=== PATIENT | female | born 1945 ===

== ENCOUNTER 2020-03-04 12:15 | Inpatient (IN) | payer SELFPAY ==
[2020-03-04] VITALS (7 sets, daily range): BP systolic 106–132; BP diastolic 63–78
[~2020-03-04] VITALS: Ht 145 cm; Wt 67.6 kg
--- NOTE | 2020-03-04 12:45 | ED Cough/URI ---
General Chief Complaint: Respiratory Problems Stated Complaint: COUGH/SOB Source: patient Exam Limitations: no limitations History of Present Illness Date Seen by Provider: Mar 04, 2020 Time Seen by Provider: 12:42 Initial Comments to ER by private vehicle from [facility] with reports of hypoxia. She presented out there with reports of shortness of breath and loss of taste over the past week. The loss of taste began 7 days ago the shortness of breath began 5 days ago. She has hypertension for which she takes amlodipine and losartan. She takes no other medications and has no other known medical diagnoses. She does not smoke. Oxygen saturation was found to be 88-89% on room air so she was referred to the emergency room. Her grandson lives with her, he tested positive for COVID within the past 2 weeks. Timing/Duration: constant Severity/Quality: no cough Associated Symptoms: shortness of breath Allergies and Home Medications Allergies Coded Allergies: No Known Drug Allergies (Unverified , 03/04/20) Home Medications Amlodipine Besylate 5 Mg Tablet, 5 MG PO DAILY, (Reported) Patient Home Medication List Home Medication List Reviewed: Yes Review of Systems Review of Systems Constitutional: see HPI; No other (no known fever) EENTM: see HPI, other (loss of taste) Respiratory: see HPI; No cough; short of breath Cardiovascular: no symptoms reported Genitourinary: no symptoms reported Musculoskeletal: no symptoms reported Skin: no symptoms reported Psychiatric/Neurological: No Symptoms Reported Hematologic/Lymphatic: No Symptoms Reported Immunological/Allergic: no symptoms reported Past Belwlpk-Yqkeku-Udaynb Hx Patient Social History Alcohol Use: Rarely Uses Recreational Drug Use: No Smoking Status: Never a Smoker Recent Hopitalizations: No Seasonal Allergies Seasonal Allergies: No Past Medical History Surgeries: Yes Section, Eye Surgery Respiratory: No Cardiac: Yes Hypertension Neurological: No Genitourinary: No Gastrointestinal: No Musculoskeletal: No Endocrine: No HEENT: Yes Cataract Cancer: No Psychosocial: No Integumentary: No Physical Exam Vital Signs - First Documented 03/04/20 12:39 Temp 37.3 Pulse 97 Resp 24 B/P (MAP) 127/67 (87) Pulse Ox 96 O2 Delivery Nasal Cannula O2 Flow Rate 2.00 Capillary Refill : Height: '" Weight: lbs. oz. kg; BMI Method: General Appearance: WD/WN, no apparent distress, other (no distress, respiratory rate is about 25/m, speaks in full sentences. Oxygen saturation 89% on room air on arrival, increased to 97% with supplemental oxygen at only 2 L. Right lung sounds are managed and crackly.) HEENT: PERRL/EOMI, normal ENT inspection Neck: non-tender, full range of motion Respiratory: no respiratory distress, no accessory muscle use Cardiovascular: regular rate, rhythm, no murmur Gastrointestinal: normal bowel sounds, non tender, soft Extremities: normal range of motion, non-tender Neurologic/Psychiatric: alert, normal mood/affect, oriented x 3 Skin: normal color, warm/dry Focused Exam Lactate Level 03/04/20 12:51: Lactic Acid Level 1.34 Lactic Acid Level Laboratory Tests Test 03/04/20 12:51 Lactic Acid Level 1.34 MMOL/L (0.50-2.00) Progress/Results/Core Measures Suspected Sepsis SIRS Temperature: Pulse: Respiratory Rate: Laboratory Tests 03/04/20 12:51: White Blood Count 13.7H Blood Pressure / Mean: 03/04/20 12:51: Lactic Acid Level 1.34 Laboratory Tests 03/04/20 12:51: Creatinine 0.71, INR Comment 1.1, Platelet Count 423H, Total Bilirubin 0.4 Results/Orders Lab Results Laboratory Tests Test 03/04/20 12:51 Range/Units White Blood Count 13.7 H 4.3-11.0 10^3/uL Red Blood Count 3.93 L 4.35-5.85 10^6/uL Hemoglobin 11.8 11.5-16.0 G/DL Hematocrit 35 35-52 % Mean Corpuscular Volume 89 80-99 FL Mean Corpuscular Hemoglobin 30 25-34 PG Mean Corpuscular Hemoglobin Concent 34 32-36 G/DL Red Cell Distribution Width 12.7 10.0-14.5 % Platelet Count 423 H 130-400 10^3/uL Mean Platelet Volume 8.7 7.4-10.4 FL Neutrophils (%) (Auto) 90 H 42-75 % Lymphocytes (%) (Auto) 6 L 12-44 % Monocytes (%) (Auto) 4 0-12 % Eosinophils (%) (Auto) 0 0-10 % Basophils (%) (Auto) 0 0-10 % Neutrophils # (Auto) 12.3 H 1.8-7.8 X 10^3 Lymphocytes # (Auto) 0.8 L 1.0-4.0 X 10^3 Monocytes # (Auto) 0.6 0.0-1.0 X 10^3 Eosinophils # (Auto) 0.0 0.0-0.3 10^3/uL Basophils # (Auto) 0.0 0.0-0.1 10^3/uL Neutrophils % (Manual) 93 % Lymphocytes % (Manual) 5 % Monocytes % (Manual) 2 % Blood Morphology Comment NORMAL Prothrombin Time 14.3 12.2-14.7 SEC INR Comment 1.1 0.8-1.4 Activated Partial Thromboplast Time 30 24-35 SEC D-Dimer 2.15 H 0.00-0.49 UG/ML Sodium Level 136 135-145 MMOL/L Potassium Level 4.0 3.6-5.0 MMOL/L Chloride Level 106 98-107 MMOL/L Carbon Dioxide Level 18 L 21-32 MMOL/L Anion Gap 12 5-14 MMOL/L Blood Urea Nitrogen 10 7-18 MG/DL Creatinine 0.71 0.60-1.30 MG/DL Estimat Glomerular Filtration Rate > 60 BUN/Creatinine Ratio 14 Glucose Level 121 H 70-105 MG/DL Lactic Acid Level 1.34 0.50-2.00 MMOL/L Calcium Level 8.4 L 8.5-10.1 MG/DL Corrected Calcium 9.0 8.5-10.1 MG/DL Total Bilirubin 0.4 0.1-1.0 MG/DL Aspartate Amino Transf (AST/SGOT) 51 H 5-34 U/L Alanine Aminotransferase (ALT/SGPT) 45 0-55 U/L Alkaline Phosphatase 95 40-136 U/L Lactate Dehydrogenase 455 H 125-220 U/L Troponin I < 0.028 <0.028 NG/ML C-Reactive Protein High Sensitivity 26.44 H 0.00-0.50 MG/DL Total Protein 7.3 6.4-8.2 GM/DL Albumin 3.2 3.2-4.5 GM/DL Procalcitonin 0.11 H <0.10 NG/ML My Orders Orders - MICHELLE UGARTE APRN Vital Signs: Every 4 Hours (Or (03/04/20 12:21) Monitor-Rhythm Ecg Trace Only (03/04/20 12:21) Cbc With Automated Diff (03/04/20 12:21) Comprehensive Metabolic Panel (03/04/20 12:21) Ferritin (03/04/20 12:21) LDH (03/04/20 12:21) Hs C Reactive Protein (03/04/20 12:21) Troponin I (03/04/20 12:21) Lactic Acid Analyzer (03/04/20 12:21) Protime With Inr (03/04/20 12:21) Partial Thromboplastin Time (03/04/20 12:21) Ekg Tracing (03/04/20 12:21) Chest 1 View, Ap/Pa Only (03/04/20 12:21) Fibrin Degradation Products (03/04/20 12:21) Blood Culture (03/04/20 12:45) Procalcitonin (Pct) (03/04/20 12:45) Coronavirus Sars-Cov-2 So 2018 (03/04/20 12:45) Manual Differential (03/04/20 12:51) Ct Angio Chest W (03/04/20 13:16) Iohexol Injection (Omnipaque 350 Mg/Ml 1 (03/04/20 13:30) Received Contrast (Hold Metformin- Contr (03/04/20 13:30) Ns (Ivpb) (Sodium Chloride 0.9% Ivpb Bag (03/04/20 13:30) Remdesivir Inj (Non-Formulary) (Remdesiv (03/04/20 14:45) Vital Signs/I&O 03/04/20 12:39 Temp 37.3 Pulse 97 Resp 24 B/P (MAP) 127/67 (87) Pulse Ox 96 O2 Delivery Nasal Cannula O2 Flow Rate 2.00 Capillary Refill : Diagnostic Imaging Diagonstic Imaging: CT Comments NAME: VANDANA GUEVARA [facility] REC#: [id number] PT STATUS: REG ER : 1945 PHYSICIAN: MICHELEL UGARTE APRN ADMIT DATE: 03/04/20/ER Draft Date of Exam:03/04/20 CHEST 1 VIEW, AP/PA ONLY INDICATION: Dyspnea and hypoxia. COMPARISON: None. DISCUSSION: Single portable upright view of the chest was obtained. Normal heart size. Patchy infiltrates are noted throughout both lungs particularly in the lung bases, likely pneumonia. No pleural fluid or pneumothorax. No osseous abnormality. IMPRESSION: 1. Bilateral consolidation, likely pneumonia. Dictated on workstation # [id number] Dict: 03/04/20 1302 Trans: 03/04/20 1320 [id number] Interpreted by: TATIANA DARDEN MD Electronically signed by: Departure Communication (Admissions) Family Conversation I spoke with Dr. Morataya, we'll admit and use Decadron 6 mg daily and Remdesivir per protocol NAME: VANDANA GUEVARA [facility] REC#: [id number] PT STATUS: REG ER : 1945 PHYSICIAN: MICHELLE UGARTE APRN ADMIT DATE: 03/04/20/ER Signed Date of Exam:03/04/20 CT ANGIO CHEST W PROCEDURE: CT angiography of the chest with contrast. TECHNIQUE: Multiple contiguous axial images were obtained through the chest after uneventful bolus administration of intravenous contrast. 3D reconstructed CTA MIP acquisitions were also performed. Auto Exposure Controls were utilized during the CT exam to meet ALARA standards for radiation dose reduction. DATE: March 04, 2020. COMPARISON: Chest radiograph March 04, 2020. INDICATION: 74-year-old female, respiratory difficulty. Shortness of breath. FINDINGS: There are multifocal patchy bilateral areas of alveolar consolidation. There is no identified pulmonary nodule. There is no lung mass. There is no pneumothorax. The central airways are patent. There is no sizable pleural effusion. There is no identified pulmonary embolus. The main pulmonary artery is normal in caliber. There is no pericardial effusion. There are atherosclerotic calcifications. There is no identified abnormally enlarged mediastinal, hilar or axillary lymph node which meets CT size criteria for adenopathy. The gallbladder is moderately distended. There is no CT apparent common bile duct stone. There is a duodenal diverticulum near the duodenal insertion of the common bile duct. There is a low-attenuation left adrenal nodule on axial image 117, measuring 1.5 cm in size, with internal attenuation of 36 Hounsfield units on this postcontrast study. This is technically indeterminate. There are degenerative changes of the spine. There is no identified acute bony abnormality. IMPRESSION: CT chest: 1. Multifocal patchy alveolar consolidation in the lungs which may relate to multifocal pneumonia and atypical infectious etiologies. Covid 19 is in the differential diagnosis. Primary differential diagnostic consideration would be a pneumonitis. 2. No identified pulmonary embolus. 3. Indeterminate left adrenal nodule. Recommend comparison with prior imaging, if available, to potentially definitively diagnose the nodule. If this cannot be definitively diagnosed on prior imaging, CT abdomen without and with intravenous contrast, adrenal mass protocol may be helpful for further assessment or MRI adrenal mass protocol without and with intravenous contrast. Results given to Michelle Ugarte APRN t 2:35 p.m., by ino. Report was also faxed to the [place] [facility] ER Dictated by: Dictated on workstation # [id number] Dict: 03/04/20 1406 Trans: 03/04/20 1439 INO [id number] Interpreted by: NICHOLAS LINDSEY MD Electronically signed by: NICHOLAS LINDSEY MD 03/04/20 1439 Impression Primary Impression: Hypoxia Additional Impressions: COVID PUI Pneumonia Disposition: ADMITTED INPATIENT Condition: Stable Admissions Decision to Admit Reason: Admit from ER (General) Decision to Admit/Date: Mar 04, 2020 Time/Decision to Admit Time: 12:45 Departure-Patient Inst. Referrals: TATIANA JUAREZ (PCP/Family) Primary Care Physician MICHELLE UGARTE APRN Mar 04, 2020 12:45
[2020-03-04] MEDS ORDERED: AMLO5TAB9 PO (12:46)
[2020-03-04 12:58] LABS: BASOPHILS % (AUTO) 0 % (0-10); EOSINOPHILS % (AUTO) 0 % (0-10); HEMATOCRIT 35 % (35-52); HEMOGLOBIN 11.8 G/DL (11.5-16.0); LYMPHOCYTES # (AUTO) 0.8 X 10^3 (1.0-4.0); LYMPHOCYTES % (AUTO) 6 % (12-44); MEAN CORPUSCULAR HEMOGLOBIN 30 PG (25-34); MEAN CORPUSCULAR HGB CONC 34 G/DL (32-36); MEAN CORPUSCULAR VOLUME 89 FL (80-99); MEAN PLATELET VOLUME 8.7 FL (7.4-10.4); MONOCYTES # (AUTO) 0.6 X 10^3 (0.0-1.0); MONOCYTES % (AUTO) 4 % (0-12); NEUTROPHILS # (AUTO) 12.3 X 10^3 (1.8-7.8); NEUTROPHILS % (AUTO) 90 % (42-75); PLATELET COUNT 423 10^3/uL (130-400); RED CELL DISTRIBUTION WIDTH 12.7 % (10.0-14.5); WHITE BLOOD COUNT 13.7 10^3/uL (4.3-11.0)
[2020-03-04 13:11] LABS: ALBUMIN 3.2 GM/DL (3.2-4.5); CHLORIDE 106 MMOL/L (98-107); SODIUM 136 MMOL/L (135-145)
[2020-03-04 13:12] LABS: CALCIUM 8.4 MG/DL (8.5-10.1)
[2020-03-04 13:13] LABS: FIBRIN DEGRADATION PRODUCTS 2.15 UG/ML (0.00-0.49); GLUCOSE 121 MG/DL (70-105); INR 1.1 (0.8-1.4); PROTHROMBIN TIME PATIENT 14.3 SEC (12.2-14.7)
[2020-03-04 13:14] LABS: TOTAL PROTEIN 7.3 GM/DL (6.4-8.2)
--- NOTE | 2020-03-04 13:14 | NUR ---
PT FAMILY FRIEND YOVANA, WHOM THEY USE AN ELEVATOR OPERATOR WAS NOTIFIED OF PT STATUS/CONDITION AND PENDING RESULTS. YOVANA WILL TRANSLATE THIS TO PT DAUGHTER AND FAMILY.
[2020-03-04 13:15] LABS: BILIRUBIN,TOTAL 0.4 MG/DL (0.1-1.0); CARBON DIOXIDE 18 MMOL/L (21-32)
[2020-03-04 13:17] LABS: ALKALINE PHOSPHATASE 95 U/L (40-136); CREATININE SERUM 0.71 MG/DL (0.60-1.30); GFR ESTIMATED > 60
[2020-03-04 13:18] LABS: BUN/CREATININE RATIO 14
[2020-03-04 13:20] LABS: ALANINE AMINOTRANSFERASE 45 U/L (0-55)
--- NOTE | 2020-03-04 13:20 | Diagnostic Imaging Report ---
INDICATION: Dyspnea and hypoxia. COMPARISON: None. DISCUSSION: Single portable upright view of the chest was obtained. Normal heart size. Patchy infiltrates are noted throughout both lungs particularly in the lung bases, likely pneumonia. No pleural fluid or pneumothorax. No osseous abnormality. IMPRESSION: 1. Bilateral consolidation, likely pneumonia. Dictated by: Dictated on workstation # [id number]
[2020-03-04] MEDS ORDERED: IOHEXOL 350 MG/ML 100 ML (OMNIPAQUE 350) VIAL IV ONE (13:30)
[2020-03-04] MEDS ORDERED: HOLD METFORMIN - RECEIVED CONTRAST 20 ML VIAL IV SCH (13:30)
[2020-03-04] MEDS ORDERED: NS 100 ML (IVPB) BAG IV ONE (13:30)
--- NOTE | 2020-03-04 13:40 | NUR ---
LANGUAGE LINE USED AT THIS TIME TO UPDATE PATIENT ON NEW IMAGING ORDERS AND CURRENT PLAN OF CARE,
[2020-03-04 13:58] LABS: LYMPHOCYTES % (MANUAL) 5 %; MONOCYTES % (MANUAL) 2 %; NEUTROPHILS % (MANUAL) 93 %; RBC MORPH NORMAL
--- NOTE | 2020-03-04 14:35 | Diagnostic Imaging Report ---
PROCEDURE: CT angiography of the chest with contrast. TECHNIQUE: Multiple contiguous axial images were obtained through the chest after uneventful bolus administration of intravenous contrast. 3D reconstructed CTA MIP acquisitions were also performed. Auto Exposure Controls were utilized during the CT exam to meet ALARA standards for radiation dose reduction. DATE: March 04, 2020. COMPARISON: Chest radiograph March 04, 2020. INDICATION: 74-year-old female, respiratory difficulty. Shortness of breath. FINDINGS: There are multifocal patchy bilateral areas of alveolar consolidation. There is no identified pulmonary nodule. There is no lung mass. There is no pneumothorax. The central airways are patent. There is no sizable pleural effusion. There is no identified pulmonary embolus. The main pulmonary artery is normal in caliber. There is no pericardial effusion. There are atherosclerotic calcifications. There is no identified abnormally enlarged mediastinal, hilar or axillary lymph node which meets CT size criteria for adenopathy. The gallbladder is moderately distended. There is no CT apparent common bile duct stone. There is a duodenal diverticulum near the duodenal insertion of the common bile duct. There is a low-attenuation left adrenal nodule on axial image 117, measuring 1.5 cm in size, with internal attenuation of 36 Hounsfield units on this postcontrast study. This is technically indeterminate. There are degenerative changes of the spine. There is no identified acute bony abnormality. IMPRESSION: CT chest: 1. Multifocal patchy alveolar consolidation in the lungs which may relate to multifocal pneumonia and atypical infectious etiologies. Covid 19 is in the differential diagnosis. Primary differential diagnostic consideration would be a pneumonitis. 2. No identified pulmonary embolus. 3. Indeterminate left adrenal nodule. Recommend comparison with prior imaging, if available, to potentially definitively diagnose the nodule. If this cannot be definitively diagnosed on prior imaging, CT abdomen without and with intravenous contrast, adrenal mass protocol may be helpful for further assessment or MRI adrenal mass protocol without and with intravenous contrast. Results given to SONU Trujillo 2:35 p.m., by marco. Report was also faxed to the [place] [facility] ER Dictated by: Dictated on workstation # [id number]
[2020-03-04] MEDS ORDERED: REMDESIVIR INJ (NON-FORMULARY) 200 MG in NS (IVPB) 210 ML IV ONE (14:45)
--- OUTSIDE RECORDS SUMMARY | 2020-03-04 15:29 | XMS REPORT | Continuity of Care Document ---
Demographics Preferred Language Unknown Marital Status Unknown Yarsani Affiliation Unknown Race Unknown Ethnic Group Unknown Author Organization Unknown Address Unknown Phone Unavailable Allergies There is no data. Medications There is no data. Problems There is no data. Procedures There is no data. Results Test Result Range Complete blood count (CBC) with automate d white blood cell (WBC) differential - 03/04/20 12:51 Blood leukocytes automated count (number/volume) 13.7 10*3/uL 4.3-11.0 Blood erythrocytes automated count (number/volume) 3.93 10*6/uL 4.35-5.85 Venous blood hemoglobin measurement (mass/volume) 11.8 g/dL 11.5-16.0 Blood hematocrit (volume fraction) 35 % 35-52 Automated erythrocyte mean corpuscular volume 89 [ foz_us] 80-99 Automated erythrocyte mean corpuscular h emoglobin (mass per erythrocyte) 30 pg 25-34 Automated erythrocyte mean corpuscular h emoglobin concentration measurement (mass/volume) 34 g/dL 32-36 Automated erythrocyte distribution width ratio 12. 7 % 10.0- 14.5 Automated blood platelet count (count/volume) 423 10*3/uL 130-400 Automated blood platelet mean volume measurement 8.7 [foz_us] 7.4-10.4 Automated blood neutrophils/100 leukocytes 90 % 42-75 Automated blood lymphocytes/100 leukocytes 6 % 12-44 Blood monocytes/100 leukocytes 4 % 0-12 Automated blood eosinophils/100 leukocytes 0 % 0-10 Automated blood basophils/100 leukocytes 0 % 0-10 Blood neutrophils automated count (number/volume) 12.3 10*3 1.8-7.8 Blood lymphocytes automated count (number/volume) 0.8 10*3 1.0-4.0 Blood monocytes automated count (number/volume) 0. 6 10*3 0.0-1.0 Automated eosinophil count 0.0 10*3/uL 0 .0-0.3 Automated blood basophil count (count/volume) 0.0 10*3/uL 0.0-0.1 Comprehensive metabolic panel - 03/04/20 12:51 Serum or plasma sodium measurement (moles/volume) 136 mmol/L 135-145 Serum or plasma potassium measurement (moles/volume) 4.0 mmol/L 3.6-5.0 Serum or plasma chloride measurement (moles/volume) 106 mmol/L 98-107 Carbon dioxide 18 mmol/L 21-32 Serum or plasma anion gap determination (moles/volume) 12 mmol/L 5-14 Serum or plasma urea nitrogen measurement (mass/volume ) 10 mg/dL 7-18 Serum or plasma creatinine measurement (mass/volume) 0.71 mg/dL 0.60-1.30 Serum or plasma urea nitrogen/creatinine mass ratio 14 NRG Serum or plasma creatinine measurement w ith calculation of estimated glomerular filtration rate > NRG Serum or plasma glucose measurement (mass/volume) 121 mg/dL 70-105 Serum or plasma calcium measurement (mass/volume) 8.4 mg/dL 8.5-10.1 Serum or plasma total bilirubin measurement (mass/volu me) 0.4 mg/dL 0.1-1.0 Serum or plasma alkaline phosphatase jenni surement (enzymatic activity/volume) 95 U/L 40-136 Serum or plasma aspartate aminotransfera se measurement (enzymatic activity/volume) 51 U/L 5-34 Serum or plasma alanine aminotransferase measurement (enzymatic activity/volume) 45 U/L 0-55 Serum or plasma protein measurement (mass/volume) 7.3 g/dL 6.4-8.2 Serum or plasma albumin measurement (mass/volume) 3.2 g/dL 3.2-4.5 CALCIUM CORRECTED 9.0 mg/dL 8.5-10.1 PT panel in platelet poor plasma by coag ulation assay - 03/04/20 12:51 Prothrombin time (PT) in platelet poor plasma by coagu lation assay 14.3 s 12.2-14.7 INR in platelet poor plasma or blood by coagulation as say 1.1 0.8-1.4 Activated partial thromboplastin time (a PTT) in platelet poor plasma bycoagulation assay - 03/04/20 12:51 Activated partial thromboplastin time (a PTT) in platelet poor plasma bycoagulation assay 30 s 24-35 Fibrin D-dimer FEU measurement in platel et poor plasma (mass/volume) - 03/04/20 12:51 Fibrin D-dimer FEU measurement in platelet poor plasma (mass/volume) 2.15 ug/mL 0.00-0.49 Blood lactic acid measurement (moles/vol ume) - 03/04/20 12:51 Blood lactic acid measurement (moles/volume) 1.34 mmol/L 0.50-2.00 Serum ragweed IgE antibody assay - 03/04 12:51 Serum ragweed IgE antibody assay 455 U/L 125-220 PROCALCITONIN (PCT) - 03/04/20 12:51 PROCALCITONIN (PCT) 0.11 ng/mL <0.10 Serum or plasma troponin i.cardiac measu rement (mass/volume) - 03/04/20 12:51 Serum or plasma troponin i.cardiac measurement (mass/v olume) < ng/mL <0.028 Serum or plasma C reactive protein measu rement (mass/volume) - 03/04/20 12:51 Serum or plasma C reactive protein measurement (mass/v olume) 26.44 mg/dL 0.00-0.50 Manual absolute plasma cell count - 02/22 09/13 12:51 Blood monocytes/100 leukocytes 2 % NRG Manual blood segmented neutrophils/100 leukocytes 93 % NRG Manual blood lymphocytes/100 leukocytes 5 % NRG Blood erythrocyte morphology finding identification NORMAL NRG Encounters ACCT No. Visit Date/Time Discharge Status Pt. Type Provider Facility Loc./Unit Complaint [id number] 03/04/2020 13:00:00 Document Registration
--- NOTE | 2020-03-04 15:35 | NUR ---
pt and family informed of pt admission status and room number at this time.
[2020-03-04] MEDS ORDERED: REMDESIVIR INJ (NON-FORMULARY) 200 MG in NS (IVPB) 210 ML IV NR (16:00)
[2020-03-04] MEDS ORDERED: ACETAMINOPHEN 325 MG TABLET PO PRN (16:00)
--- NOTE | 2020-03-04 16:28 | NUR ---
VANDANA GUEVARA admitted to room 422-1, with an admitting diagnosis of hypoxia, pneumonia, on 03/04/20 from [place] ED via wheelchair, accompanied by staff. VANDANA GUEVARA introduced to surroundings, call light, bed controls, phone, TV, temperature control, lights, meal times, smoking policy, visitor policy, side rail policy, bathrooms and showers. Patient Rights given to patient in the handbook. VANDANA GUEVARA verbalizes understanding that [facility] is not responsible for the loss or damage to any personal effects or valuables that are kept in the patients possession during their hospitalization. The following Patient Care Plans were discussed with the patient: Discharge Planning, pain management, dehydration, and medications. VANDANA GUEVARA verbalizes understanding of Interdisciplinary Patient Education. Patient and/or family were informed about the Rapid Response Team and its purpose.
[2020-03-04] MEDS ORDERED: RT-ALBUTEROL INHALER HFA (VENTOLIN HFA) 18 GM IH PRN (16:30)
[2020-03-04] MEDS: DEXAMETHASONE 4 MG/ML SDV (DECADRON) IV SCH (16:55)
[2020-03-04] MEDS: LACTATED RINGERS 1,000 ML IV SCH (16:55)
[2020-03-04] MEDS ORDERED: LOSA1TAB20 PO (17:31)
[2020-03-04] MEDS ORDERED: inSUlin ASPART (NovoLOG) 1 UNIT/0.01 ML (CHARGE PER UNIT) SC SCH (18:00)
[2020-03-04] MEDS ORDERED: polyethylene glycoL POWDER 17 GM (MIRALAX) PACK PO PRN (18:00)
[2020-03-04] MEDS ORDERED: ANTACID SUSP 30 ML UDC (MYLANTA) PO PRN (18:00)
[2020-03-04] MEDS ORDERED: ONDANSETRON 4 MG/2 ML (SDV) Z0FRAN IV PRN (18:00)
[2020-03-04] MEDS ORDERED: diphenhydrAMINE 25 MG TAB (BENADRYL) PO PRN (18:00)
[2020-03-04] MEDS ORDERED: BISACODYL 10 MG SUPP (DULCOLAX) PR PRN (18:00)
--- NOTE | 2020-03-04 18:42 | NUR ---
RN USED LANGUAGE LINE TO COMMUNICATE DURING ADMISSION. PT STATES SHE ONLY WANTS YOVANA, WHO SHE STATES IS HER GRANDDAUGHTER, TO BE CONTACT. YOVANA NUMBER [phone], ALSO LISTED ON EMERGENCY LIST IN CHART.
[2020-03-04] MEDS: RT-ALBUTEROL INHALER HFA (VENTOLIN HFA) 18 GM IH SCH ×2 (19:17→19:18)
[2020-03-04] MEDS ORDERED: SENNA W/DOCUSATE (SENOKOT S) TABLET ONE (19:20)
[2020-03-04] MEDS: ACETAMINOPHEN 325 MG TABLET PO PRN (19:26)
[2020-03-04] MEDS: DOCUSATE SODIUM 100 MG (COLACE) CAP PO SCH (21:00)
[2020-03-04] MEDS: SENNOSIDES 8.6 MG (SENOKOT) TAB PO SCH (21:00)
[2020-03-04] MEDS: ENOXAPARIN 40 MG/0.4 ML (LOVENOX) SYR SC SCH (21:33)
[2020-03-04] MEDS: MELATONIN 3 MG TABLET PO PRN (21:46)
[2020-03-04] MEDS: ONDANSETRON 4 MG (ZOFRAN) ORAL DISSOLVE TAB PO PRN (21:47)
[2020-03-05 00:14] VITALS: BP 128/78
[2020-03-05] MEDS: RT-ALBUTEROL INHALER HFA (VENTOLIN HFA) 18 GM IH SCH ×6 (02:00→19:54)
[2020-03-05] MEDS: LACTATED RINGERS 1,000 ML IV SCH ×2 (05:21→17:22)
[2020-03-05 05:32] VITALS: BP 159/74
[2020-03-05 05:45] LABS: BASOPHILS % (AUTO) 0 % (0-10); EOSINOPHILS # (AUTO) 0.1 10^3/uL (0.0-0.3); EOSINOPHILS % (AUTO) 1 % (0-10); HEMATOCRIT 35 % (35-52); HEMOGLOBIN 11.7 G/DL (11.5-16.0); LYMPHOCYTES # (AUTO) 0.9 X 10^3 (1.0-4.0); LYMPHOCYTES % (AUTO) 10 % (12-44); MEAN CORPUSCULAR HEMOGLOBIN 30 PG (25-34); MEAN CORPUSCULAR HGB CONC 34 G/DL (32-36); MEAN CORPUSCULAR VOLUME 90 FL (80-99); MEAN PLATELET VOLUME 9.2 FL (7.4-10.4); MONOCYTES # (AUTO) 0.1 X 10^3 (0.0-1.0); MONOCYTES % (AUTO) 1 % (0-12); NEUTROPHILS # (AUTO) 7.4 X 10^3 (1.8-7.8); NEUTROPHILS % (AUTO) 88 % (42-75); PLATELET COUNT 410 10^3/uL (130-400); RED CELL DISTRIBUTION WIDTH 12.5 % (10.0-14.5); WHITE BLOOD COUNT 8.4 10^3/uL (4.3-11.0)
[2020-03-05 05:56] LABS: ALBUMIN 3.2 GM/DL (3.2-4.5)
[2020-03-05 05:57] LABS: CHLORIDE 106 MMOL/L (98-107); POTASSIUM 3.6 MMOL/L (3.6-5.0); SODIUM 138 MMOL/L (135-145)
[2020-03-05 05:58] LABS: CALCIUM 8.5 MG/DL (8.5-10.1)
[2020-03-05 05:59] LABS: GLUCOSE 133 MG/DL (70-105); TOTAL PROTEIN 7.4 GM/DL (6.4-8.2)
[2020-03-05 06:00] LABS: CARBON DIOXIDE 17 MMOL/L (21-32)
[2020-03-05 06:01] LABS: BILIRUBIN,TOTAL 0.3 MG/DL (0.1-1.0)
[2020-03-05 06:02] LABS: ALKALINE PHOSPHATASE 96 U/L (40-136)
[2020-03-05 06:03] LABS: CREATININE SERUM 0.66 MG/DL (0.60-1.30); GFR ESTIMATED > 60
[2020-03-05 06:04] LABS: BUN/CREATININE RATIO 18
[2020-03-05 06:06] LABS: ALANINE AMINOTRANSFERASE 50 U/L (0-55)
[2020-03-05] MEDS: LOSARTAN 50 MG (COZAAR) TAB PO SCH (07:40)
[2020-03-05] MEDS: DOCUSATE SODIUM 100 MG (COLACE) CAP PO SCH ×2 (07:40→21:42)
[2020-03-05] MEDS: SENNOSIDES 8.6 MG (SENOKOT) TAB PO SCH ×2 (07:40→21:43)
[2020-03-05] MEDS: DEXAMETHASONE 4 MG/ML SDV (DECADRON) IV SCH (07:40)
[2020-03-05 07:42] VITALS: BP 112/72
[2020-03-05] MEDS: amLODIPine 5 MG (NORVASC) TAB PO SCH (07:42)
--- NOTE | 2020-03-05 12:34 | History & Physical-Hospitalist ---
History of Present Illness HPI/Chief Complaint Lore Hayden is a 74-year-old female with past medical history of hypertension, obesity, who presented with shortness of breath. She reports that she has a relative at home who has tested positive for COVID-19. She began having symptoms about a week ago. She reports that she did not want to eat. Then the food started tasting differently. Then she lost reasons of smell. She then had some of the shortness of breath. She also reports a cough. She denies ever having fevers or chills. She denies any nausea or vomiting. She denies any abdominal pain. She denies any chest pain. She has not had any leg swelling. She has had a lot of dyspnea with exertion. Source: patient, dock associate Date Seen 03/05/20 Time Seen by a Provider: 10:20 Attending Physician Malaika Burr David M Pa Referring Physician Date of Admission Mar 04, 2020 at 13:16 Home Medications & Allergies Home Medications Reviewed patient Home Medication Reconciliation performed by pharmacy medication reconciliations quality systems technician and/or nursing. Patients Allergies have been reviewed. Allergies Allergies Coded Allergies No Known Drug Allergies (Unverified03/04/20) Past Uraxkew-Jwtkcg-Icrvkg Hx Past Med/Social Hx: Reviewed Nursing Past Med/Soc Hx Patient Social History Alcohol Use: Rarely Uses Recreational Drug Use: No Smoking Status: Never a Smoker Recent Foreign Travel: No Contact w/other who traveled: No Recent Hopitalizations: No Recent Infectious Disease Expo: Yes (SON IN LAW HAS BEEN DX WITH COVID) Immunizations Up To Date Date of Pneumonia Vaccine: Mar 04, 2019 Seasonal Allergies Seasonal Allergies: No Past Medical History Surgeries: Section, Eye Surgery Cardiac: Hypertension HEENT: Cataract Review of Systems Constitutional: no symptoms reported EENTM: other (Altered taste and smell) Respiratory: cough, dyspnea on exertion, short of breath Cardiovascular: no symptoms reported Gastrointestinal: no symptoms reported Genitourinary: no symptoms reported Musculoskeletal: no symptoms reported Skin: no symptoms reported Psychiatric/Neurological: No Symptoms Reported Physical Exam Physical Exam Vital Signs Vital Signs - First Documented 03/04/20 03/04/20 12:39 16:15 Temp 37.3 Pulse 97 Resp 24 B/P (MAP) 127/67 (87) Pulse Ox 96 O2 Delivery Nasal Cannula O2 Flow Rate 2.00 FiO2 28 Capillary Refill : Less Than 3 Seconds Height, Weight, BMI Height: '" Weight: lbs. oz. kg; 30.91 BMI Method: General Appearance: No Apparent Distress, Obese HEENT: PERRL/EOMI, Pharynx Normal Neck: Normal Inspection, Supple Respiratory: Lungs Clear, Normal Breath Sounds, No Respiratory Distress Cardiovascular: Regular Rate, Rhythm, No Edema, No Murmur Gastrointestinal: Normal Bowel Sounds, Non Tender, Soft Extremity: Normal Inspection, Non Tender, No Pedal Edema Neurologic/Psychiatric: Alert, Oriented x3, No Motor/Sensory Deficits, Normal Mood/Affect Skin: Normal Color, Warm/Dry Results Results/Procedures Labs Laboratory Tests 03/04/20 12:51 03/05/20 05:00 Patient resulted labs reviewed. Imaging: Reviewed Imaging Report Assessment/Plan Admission Diagnosis Acute respiratory failure with hypoxia Admission Status: Inpatient Order (span 2 midnights) Reason for Inpatient Admission: Likely COVID-19 Assessment and Plan Acute respiratory failure with hypoxia Likely COVID-19 Metabolic acidosis Thrombocytosis Lymphopenia Elevated AST Hypertension Obesity Adrenal incidentaloma Known exposure to COVID positive family member Chest x-ray with bilateral infiltrates Elevated CRP, d-dimer, ferritin, AST COVID PCR pending Given loading dose of Remdesivir Hold next dose until COVID PCR returns Started on Decadron Continue supplemental oxygen CT revealed adrenal incidentaloma, follow-up outpatient DVT prophylaxis: Lovenox Diagnosis/Problems Diagnosis/Problems (1) Acute respiratory failure with hypoxia Status: Acute (2) Elevated AST (SGOT) Status: Acute (3) Elevated d-dimer Status: Acute (4) Metabolic acidosis Status: Acute (5) Thrombocytosis Status: Acute (6) HTN (hypertension) Status: Chronic Qualifiers: Hypertension type: essential hypertension Qualified Codes: I10 - Essential (primary) hypertension (7) Obesity Status: Chronic Qualifiers: Obesity type: due to excess calories Obesity classification: adult class 1 (BMI 30 - 34.9) Serious obesity comorbidity presence: with serious comorbidity Body mass index: BMI 30.0-30.9 Qualified Codes: E66.09 - Other obesity due to excess calories; Z68.30 - Body mass index (bmi) 30.0-30.9, adult (8) Adrenal incidentaloma Status: Acute (9) Lymphopenia Status: Acute Clinical Quality Measures DVT/VTE Risk/Contraindication: Risk Factor Score Per Nursin RFS Level Per Nursing on Admit: 4+=Very High HOMER SOLIS MD Mar 05, 2020 12:34
[2020-03-05 13:00] VITALS: BP 148/79
--- NOTE | 2020-03-05 14:41 | NUR ---
PT COVID [address] SOLIS NOTIFIED AND GAVE ORDER TO MOVE PT TO 433 IN A COVID + ROOM.
[2020-03-05] MEDS: ONDANSETRON 4 MG (ZOFRAN) ORAL DISSOLVE TAB PO PRN (15:03)
--- NOTE | 2020-03-05 15:19 | NUR ---
PT NOTIFIED VIA LANGUAGE LINE THAT HER LAB RESULTS WERE POSITIVE FOR COVID 19 AND HAD TO CHANGE ROOMS.
[2020-03-05 17:00] VITALS: BP 143/75
[2020-03-05] MEDS: REMDESIVIR INJ (NON-FORMULARY) 100 MG in NS (IVPB) 230 ML IV SCH (17:21)
[2020-03-05] MEDS: ENOXAPARIN 40 MG/0.4 ML (LOVENOX) SYR SC SCH (17:21)
[2020-03-05 20:00] VITALS: BP 136/74
[2020-03-05] MEDS: MELATONIN 3 MG TABLET PO PRN (21:42)
[2020-03-05] MEDS: ACETAMINOPHEN 325 MG TABLET PO PRN (21:42)
[2020-03-06] VITALS (7 sets, daily range): BP systolic 126–172; BP diastolic 70–83
[2020-03-06] MEDS: RT-ALBUTEROL INHALER HFA (VENTOLIN HFA) 18 GM IH SCH ×3 (03:50→22:38)
[2020-03-06] MEDS: LACTATED RINGERS 1,000 ML IV SCH (05:50)
[2020-03-06 06:04] LABS: BASOPHILS % (AUTO) 0 % (0-10); EOSINOPHILS % (AUTO) 0 % (0-10); HEMATOCRIT 34 % (35-52); HEMOGLOBIN 11.4 G/DL (11.5-16.0); LYMPHOCYTES # (AUTO) 1.1 X 10^3 (1.0-4.0); LYMPHOCYTES % (AUTO) 6 % (12-44); MEAN CORPUSCULAR HEMOGLOBIN 30 PG (25-34); MEAN CORPUSCULAR HGB CONC 34 G/DL (32-36); MEAN CORPUSCULAR VOLUME 90 FL (80-99); MEAN PLATELET VOLUME 8.8 FL (7.4-10.4); MONOCYTES % (AUTO) 6 % (0-12); NEUTROPHILS # (AUTO) 14.3 X 10^3 (1.8-7.8); NEUTROPHILS % (AUTO) 88 % (42-75); PLATELET COUNT 501 10^3/uL (130-400); RED CELL DISTRIBUTION WIDTH 12.7 % (10.0-14.5); WHITE BLOOD COUNT 16.3 10^3/uL (4.3-11.0)
[2020-03-06 06:17] LABS: ALBUMIN 2.9 GM/DL (3.2-4.5); CHLORIDE 107 MMOL/L (98-107); POTASSIUM 4.5 MMOL/L (3.6-5.0); SODIUM 140 MMOL/L (135-145)
[2020-03-06 06:18] LABS: CALCIUM 8.6 MG/DL (8.5-10.1)
[2020-03-06 06:19] LABS: GLUCOSE 127 MG/DL (70-105); TOTAL PROTEIN 6.4 GM/DL (6.4-8.2)
[2020-03-06 06:20] LABS: CARBON DIOXIDE 22 MMOL/L (21-32)
[2020-03-06 06:21] LABS: BILIRUBIN,TOTAL 0.3 MG/DL (0.1-1.0)
[2020-03-06 06:22] LABS: ALKALINE PHOSPHATASE 80 U/L (40-136)
[2020-03-06 06:23] LABS: CREATININE SERUM 0.65 MG/DL (0.60-1.30); GFR ESTIMATED > 60
[2020-03-06 06:24] LABS: BUN/CREATININE RATIO 31
[2020-03-06 06:26] LABS: ALANINE AMINOTRANSFERASE 46 U/L (0-55)
[2020-03-06] MEDS: SENNOSIDES 8.6 MG (SENOKOT) TAB PO SCH ×2 (07:32→22:38)
[2020-03-06] MEDS: DOCUSATE SODIUM 100 MG (COLACE) CAP PO SCH ×2 (07:32→22:38)
[2020-03-06] MEDS: LOSARTAN 50 MG (COZAAR) TAB PO SCH (07:33)
[2020-03-06] MEDS: DEXAMETHASONE 4 MG/ML SDV (DECADRON) IV SCH (07:33)
[2020-03-06] MEDS: amLODIPine 5 MG (NORVASC) TAB PO SCH (07:33)
--- NOTE | 2020-03-06 08:41 | NUR ---
oxy ir pulled by oscar gordon and charted by this rn.
--- NOTE | 2020-03-06 14:29 | Progress Note - Hospitalist ---
Subjective HPI/CC On Admission Date Seen by Provider: Mar 06, 2020 Time Seen by Provider: 14:24 Lore Hayden is a 74-year-old female with past medical history of hypertension, obesity, who presented with shortness of breath. She reports that she has a relative at home who has tested positive for COVID-19. She began having symptoms about a week ago. She reports that she did not want to eat. Then the food started tasting differently. Then she lost reasons of smell. She then had some of the shortness of breath. She also reports a cough. She denies ever having fevers or chills. She denies any nausea or vomiting. She denies any abdominal pain. She denies any chest pain. She has not had any leg swelling. She has had a lot of dyspnea with exertion. Subjective/Events-last exam Pt reports feeling much better today. Breathing improved. Satting 95% while I was in room with her. I personally turned it down to 1lpm and sat was 94%. Has not been up yet today but plans to. Focused Exam Lactate Level 03/04/20 12:51: Lactic Acid Level 1.34 Objective Exam Vital Signs Vital Signs Date Time Temp Pulse Resp B/P (MAP) Pulse Ox O2 Delivery O2 Flow Rate FiO2 03/06/20 12:00 36.2 89 16 126/74 (91) 91 Nasal Cannula 2.00 03/04/20 16:15 28 Capillary Refill : Less Than 3 Seconds General Appearance: No Apparent Distress, WD/WN Respiratory: Lungs Clear, No Respiratory Distress Cardiovascular: Regular Rate, Rhythm, No Murmur Neurologic/Psychiatric: Alert, Oriented x3 Results/Procedures Lab Laboratory Tests 03/06/20 05:45 Patient resulted labs reviewed. Imaging: Reviewed Imaging Report Assessment/Plan Assessment and Plan Assess & Plan/Chief Complaint Acute respiratory failure with hypoxia COVID19 Hypertension Obesity Adrenal incidentaloma Known exposure to COVID positive family member Chest x-ray with bilateral infiltrates COVID PCR positive Continue Remdesivir Continue Decadron Continue supplemental oxygen, titrate as able - PT consulted CT revealed adrenal incidentaloma, follow-up outpatient DVT prophylaxis: Lovenox Clinical Quality Measures DVT/VTE Risk/Contraindication: Risk Factor Score Per Nursin RFS Level Per Nursing on Admit: 4+=Very High ESA TORRES MD Mar 06, 2020 14:29
--- NOTE | 2020-03-06 14:59 | Physical Therapy Progress Note ---
Therapy Progress Note Orders received for PT evaluation. Patient is covid positive. Checked with nurse beforehand. Nurse states that patient is getting around independently in her room, ambulating and pushing the IV pole herself and going to the bathroom independently. No PT eval performed at this time due to patient being independent with functional mobility per nursing report. MARTHA CROSS PT Mar 06, 2020 14:59
[2020-03-06] MEDS: REMDESIVIR INJ (NON-FORMULARY) 100 MG in NS (IVPB) 230 ML IV SCH (16:33)
[2020-03-06] MEDS: inSUlin ASPART (NovoLOG) 1 UNIT/0.01 ML (CHARGE PER UNIT) SC SCH ×2 (16:33→22:40)
[2020-03-06] MEDS: ENOXAPARIN 40 MG/0.4 ML (LOVENOX) SYR SC SCH (17:47)
[2020-03-06] MEDS: MELATONIN 3 MG TABLET PO PRN (22:38)
[2020-03-07] VITALS: BP 126/68
[2020-03-07] MEDS: RT-ALBUTEROL INHALER HFA (VENTOLIN HFA) 18 GM IH SCH ×4 (03:31→21:00)
[2020-03-07 04:00] VITALS: BP 132/74
[2020-03-07 06:10] LABS: ALBUMIN 2.9 GM/DL (3.2-4.5); CHLORIDE 106 MMOL/L (98-107); POTASSIUM 4.6 MMOL/L (3.6-5.0); SODIUM 140 MMOL/L (135-145)
[2020-03-07 06:11] LABS: CALCIUM 8.3 MG/DL (8.5-10.1)
[2020-03-07 06:12] LABS: GLUCOSE 100 MG/DL (70-105)
[2020-03-07 06:13] LABS: TOTAL PROTEIN 6.3 GM/DL (6.4-8.2)
[2020-03-07 06:14] LABS: CARBON DIOXIDE 25 MMOL/L (21-32)
[2020-03-07 06:15] LABS: BILIRUBIN,TOTAL 0.3 MG/DL (0.1-1.0)
[2020-03-07 06:16] LABS: ALKALINE PHOSPHATASE 77 U/L (40-136); CREATININE SERUM 0.66 MG/DL (0.60-1.30); GFR ESTIMATED > 60
[2020-03-07 06:17] LABS: BUN/CREATININE RATIO 32
[2020-03-07 06:19] LABS: ALANINE AMINOTRANSFERASE 47 U/L (0-55)
[2020-03-07] MEDS: inSUlin ASPART (NovoLOG) 1 UNIT/0.01 ML (CHARGE PER UNIT) SC SCH ×4 (06:21→21:00)
[2020-03-07] MEDS: SENNOSIDES 8.6 MG (SENOKOT) TAB PO SCH ×2 (07:34→21:00)
[2020-03-07] MEDS: DEXAMETHASONE 4 MG/ML SDV (DECADRON) IV SCH (07:34)
[2020-03-07] MEDS: LOSARTAN 50 MG (COZAAR) TAB PO SCH (07:35)
[2020-03-07] MEDS: amLODIPine 5 MG (NORVASC) TAB PO SCH (07:35)
[2020-03-07] MEDS: DOCUSATE SODIUM 100 MG (COLACE) CAP PO SCH ×2 (07:35→21:00)
--- NOTE | 2020-03-07 08:41 | NUR ---
Received dietary consult for MST Score. Note pt is currently PUI. Will monitor intake and have full assessment on 03/10. Nathan Pabon MS, RD, LD
[2020-03-07 09:26] VITALS: BP 146/68
--- NOTE | 2020-03-07 13:27 | Progress Note - Hospitalist ---
Subjective HPI/CC On Admission Date Seen by Provider: Mar 07, 2020 Time Seen by Provider: 13:24 Lore Hayden is a 74-year-old female with past medical history of hypertension, obesity, who presented with shortness of breath. She reports that she has a relative at home who has tested positive for COVID-19. She began having symptoms about a week ago. She reports that she did not want to eat. Then the food started tasting differently. Then she lost reasons of smell. She then had some of the shortness of breath. She also reports a cough. She denies ever having fevers or chills. She denies any nausea or vomiting. She denies any abdominal pain. She denies any chest pain. She has not had any leg swelling. She has had a lot of dyspnea with exertion. Subjective/Events-last exam Pt reports feeling better today. Was satting 97% when I was in the room so oxygen taken off and sats maintained at 92-94%. I left monitor on and informed nurse to watch given change. Patient agreeable with plan. Had not concerns or questions. Language line used. Objective Exam Vital Signs Vital Signs Date Time Temp Pulse Resp B/P (MAP) Pulse Ox O2 Delivery O2 Flow Rate FiO2 03/07/20 12:24 37.4 92 20 91 Room Air 03/07/20 09:26 2.00 03/04/20 16:15 28 Capillary Refill : Less Than 3 Seconds General Appearance: No Apparent Distress, WD/WN Cardiovascular: Regular Rate, Rhythm, No Murmur Gastrointestinal: Normal Bowel Sounds, Non Tender, Soft Neurologic/Psychiatric: Alert, Oriented x3 Results/Procedures Lab Laboratory Tests 03/07/20 05:50 Patient resulted labs reviewed. Imaging: Reviewed Imaging Report Assessment/Plan Assessment and Plan Assess & Plan/Chief Complaint Acute respiratory failure with hypoxia COVID19 Hypertension Obesity Adrenal incidentaloma Known exposure to COVID positive family member Chest x-ray with bilateral infiltrates COVID PCR positive Continue Remdesivir Continue Decadron- switch to oral Wean off oxygen as able - PT consulted CT revealed adrenal incidentaloma, follow-up outpatient DVT prophylaxis: Lovenox Diagnosis/Problems Diagnosis/Problems (1) Coronavirus infection (2) Acute respiratory failure with hypoxia Status: Acute (3) HTN (hypertension) Status: Chronic Qualifiers: Hypertension type: essential hypertension Qualified Codes: I10 - Essential (primary) hypertension (4) Adrenal incidentaloma Status: Acute (5) Obesity Status: Chronic Qualifiers: Obesity type: due to excess calories Obesity classification: adult class 1 (BMI 30 - 34.9) Serious obesity comorbidity presence: with serious comorbidity Body mass index: BMI 30.0-30.9 Qualified Codes: E66.09 - Other obesity due to excess calories; Z68.30 - Body mass index (bmi) 30.0-30.9, adult (6) Lymphopenia Status: Acute (7) Thrombocytosis Status: Acute (8) Elevated d-dimer Status: Acute Clinical Quality Measures DVT/VTE Risk/Contraindication: Risk Factor Score Per Nursin RFS Level Per Nursing on Admit: 4+=Very High ESA TORRES MD Mar 07, 2020 13:27
[2020-03-07] MEDS: REMDESIVIR INJ (NON-FORMULARY) 100 MG in NS (IVPB) 230 ML IV SCH (16:54)
[2020-03-07 17:35] VITALS: BP 137/77
[2020-03-07 20:35] VITALS: BP 123/71
[2020-03-07] MEDS: ENOXAPARIN 40 MG/0.4 ML (LOVENOX) SYR SC SCH (20:39)
[2020-03-07] MEDS: ACETAMINOPHEN 325 MG TABLET PO PRN (20:41)
[2020-03-07] MEDS: MELATONIN 3 MG TABLET PO PRN (20:41)
[2020-03-08] VITALS: BP 132/71
[2020-03-08] MEDS: RT-ALBUTEROL INHALER HFA (VENTOLIN HFA) 18 GM IH SCH ×4 (03:00→20:57)
[2020-03-08 04:00] VITALS: BP 128/72
[2020-03-08] MEDS: inSUlin ASPART (NovoLOG) 1 UNIT/0.01 ML (CHARGE PER UNIT) SC SCH ×4 (06:00→21:00)
[2020-03-08 06:37] LABS: ALBUMIN 2.7 GM/DL (3.2-4.5); CHLORIDE 106 MMOL/L (98-107); POTASSIUM 4.2 MMOL/L (3.6-5.0); SODIUM 138 MMOL/L (135-145)
[2020-03-08 06:38] LABS: CALCIUM 7.8 MG/DL (8.5-10.1)
[2020-03-08 06:39] LABS: GLUCOSE 93 MG/DL (70-105); TOTAL PROTEIN 5.6 GM/DL (6.4-8.2)
[2020-03-08 06:40] LABS: CARBON DIOXIDE 23 MMOL/L (21-32)
[2020-03-08 06:41] LABS: BILIRUBIN,TOTAL 0.3 MG/DL (0.1-1.0)
[2020-03-08 06:43] LABS: ALKALINE PHOSPHATASE 76 U/L (40-136); CREATININE SERUM 0.56 MG/DL (0.60-1.30); GFR ESTIMATED > 60
[2020-03-08 06:44] LABS: BUN/CREATININE RATIO 32
[2020-03-08 06:46] LABS: ALANINE AMINOTRANSFERASE 56 U/L (0-55)
[2020-03-08] MEDS: amLODIPine 5 MG (NORVASC) TAB PO SCH (07:31)
[2020-03-08] MEDS: DEXAMETHASONE 4 MG TAB (DECADRON) PO SCH (07:31)
[2020-03-08] MEDS: DOCUSATE SODIUM 100 MG (COLACE) CAP PO SCH ×2 (07:31→21:00)
[2020-03-08] MEDS: SENNOSIDES 8.6 MG (SENOKOT) TAB PO SCH ×2 (07:31→21:00)
[2020-03-08] MEDS: LOSARTAN 50 MG (COZAAR) TAB PO SCH (07:32)
[2020-03-08 09:16] VITALS: BP 137/78
--- NOTE | 2020-03-08 13:24 | Progress Note - Hospitalist ---
Subjective HPI/CC On Admission Date Seen by Provider: Mar 08, 2020 Time Seen by Provider: 13:21 Lore Hayden is a 74-year-old female with past medical history of hypertension, obesity, who presented with shortness of breath. She reports that she has a relative at home who has tested positive for COVID-19. She began having symptoms about a week ago. She reports that she did not want to eat. Then the food started tasting differently. Then she lost reasons of smell. She then had some of the shortness of breath. She also reports a cough. She denies ever having fevers or chills. She denies any nausea or vomiting. She denies any abdominal pain. She denies any chest pain. She has not had any leg swelling. She has had a lot of dyspnea with exertion. Subjective/Events-last exam Pt reports feeling better today. Still gets short of breath with getting up. Objective Exam Vital Signs Vital Signs Date Time Temp Pulse Resp B/P (MAP) Pulse Ox O2 Delivery O2 Flow Rate FiO2 03/08/20 09:16 37.3 86 20 137/78 (97) 95 Room Air 03/08/20 04:00 2.00 2.00 03/04/20 16:15 28 Capillary Refill : Less Than 3 SecondsLess Than 3 Seconds General Appearance: No Apparent Distress, WD/WN Cardiovascular: Regular Rate, Rhythm, No Murmur Neurologic/Psychiatric: Alert, Oriented x3 Results/Procedures Lab Laboratory Tests 03/08/20 06:15 Patient resulted labs reviewed. Imaging: Reviewed Imaging Report Assessment/Plan Assessment and Plan Assess & Plan/Chief Complaint Acute respiratory failure with hypoxia COVID19 Hypertension Obesity Adrenal incidentaloma Known exposure to COVID positive family member Chest x-ray with bilateral infiltrates COVID PCR positive Continue Remdesivir, completes course tomorrow Continue Decadron Wean off oxygen as able, needs home O2 study CT revealed adrenal incidentaloma, follow-up outpatient DVT prophylaxis: Lovenox Diagnosis/Problems Diagnosis/Problems (1) Coronavirus infection (2) Acute respiratory failure with hypoxia Status: Acute (3) HTN (hypertension) Status: Chronic Qualifiers: Hypertension type: essential hypertension Qualified Codes: I10 - Essential (primary) hypertension (4) Adrenal incidentaloma Status: Acute (5) Obesity Status: Chronic Qualifiers: Obesity type: due to excess calories Obesity classification: adult class 1 (BMI 30 - 34.9) Serious obesity comorbidity presence: with serious comorbidity Body mass index: BMI 30.0-30.9 Qualified Codes: E66.09 - Other obesity due to excess calories; Z68.30 - Body mass index (bmi) 30.0-30.9, adult (6) Lymphopenia Status: Acute (7) Thrombocytosis Status: Acute (8) Elevated d-dimer Status: Acute Clinical Quality Measures DVT/VTE Risk/Contraindication: Risk Factor Score Per Nursin RFS Level Per Nursing on Admit: 4+=Very High ESA TORRES MD Mar 08, 2020 13:24
[2020-03-08 15:38] VITALS: BP 107/63
[2020-03-08] MEDS: REMDESIVIR INJ (NON-FORMULARY) 100 MG in NS (IVPB) 230 ML IV SCH (15:40)
[2020-03-08] MEDS: ENOXAPARIN 40 MG/0.4 ML (LOVENOX) SYR SC SCH (17:37)
[2020-03-08 17:58] VITALS: BP 133/79
[2020-03-08 20:00] VITALS: BP 137/77
[2020-03-08] MEDS: MELATONIN 3 MG TABLET PO PRN (20:58)
[2020-03-09] MEDS: RT-ALBUTEROL INHALER HFA (VENTOLIN HFA) 18 GM IH SCH ×3 (03:00→15:26)
[2020-03-09] MEDS: inSUlin ASPART (NovoLOG) 1 UNIT/0.01 ML (CHARGE PER UNIT) SC SCH ×2 (05:21→10:24)
[2020-03-09 06:10] LABS: ALANINE AMINOTRANSFERASE 56 U/L (0-55); ALBUMIN 2.5 GM/DL (3.2-4.5); ALKALINE PHOSPHATASE 69 U/L (40-136); BILIRUBIN,TOTAL 0.3 MG/DL (0.1-1.0); BUN/CREATININE RATIO 32; CALCIUM 7.6 MG/DL (8.5-10.1); CARBON DIOXIDE 23 MMOL/L (21-32); CHLORIDE 106 MMOL/L (98-107); CREATININE SERUM 0.57 MG/DL (0.60-1.30); GFR ESTIMATED > 60; GLUCOSE 85 MG/DL (70-105); POTASSIUM 4.9 MMOL/L (3.6-5.0); SODIUM 138 MMOL/L (135-145); TOTAL PROTEIN 5.7 GM/DL (6.4-8.2)
[2020-03-09] MEDS: amLODIPine 5 MG (NORVASC) TAB PO SCH (08:33)
[2020-03-09] MEDS: DEXAMETHASONE 4 MG TAB (DECADRON) PO SCH (08:33)
[2020-03-09] MEDS: LOSARTAN 50 MG (COZAAR) TAB PO SCH (08:33)
[2020-03-09 08:35] VITALS: BP 138/74
[2020-03-09] MEDS: DOCUSATE SODIUM 100 MG (COLACE) CAP PO SCH (09:00)
[2020-03-09] MEDS: SENNOSIDES 8.6 MG (SENOKOT) TAB PO SCH (09:00)
--- NOTE | 2020-03-09 09:49 | NUR ---
PATIENT DID NOT QUALIFY FOR ANY HOME O2 AT THIS TIME Addendum: 03/09/20 at 0949 by FADI ARMSTRONG RT Amended: Links added.
[2020-03-09] MEDS: ACETAMINOPHEN 325 MG TABLET PO PRN (10:24)
[2020-03-09] MEDS ORDERED: AMLO5TAB9 PO (12:17)
[2020-03-09] MEDS ORDERED: LOSA50TA63 PO (12:17)
--- NOTE | 2020-03-09 12:21 | Discharge Inst-Simple/Standard ---
Discharge Inst-Standard Discharge Medications New, Converted or Re-Newed RX: Transmitted to Pharmacy Patient Instructions/Follow Up Plan of Care/Instructions/FU: Please continue to take your medications as written. Please follow up with your doctor in the next week to follow up this hospital stay. Activity as Tolerated: Yes Discharge Diet: No Restrictions Return to The Hospital For: Chest pain, shortness of breath, fever, low oxygen levels, if you feel you are getting worse. ESA TORRES MD Mar 09, 2020 12:21
--- NOTE | 2020-03-09 12:36 | Discharge Summary ---
Diagnosis/Chief Complaint Date of Admission Mar 04, 2020 at 13:16 Date of Discharge Discharge Date: Mar 09, 2020 Admission Diagnosis Acute respiratory failure with hypoxia Primary Care Mauricio Acosta Discharge Diagnosis (1) Coronavirus infection (2) Acute respiratory failure with hypoxia Status: Acute (3) HTN (hypertension) Status: Chronic (4) Adrenal incidentaloma Status: Acute (5) Obesity Status: Chronic (6) Lymphopenia Status: Acute (7) Thrombocytosis Status: Acute (8) Elevated d-dimer Status: Acute Discharge Summary Discharge Physical Exam Allergies: Coded Allergies: No Known Drug Allergies (Unverified , 03/04/20) Vitals & I&Os Vital Signs Date Time Temp Pulse Resp B/P (MAP) Pulse Ox O2 Delivery O2 Flow Rate FiO2 03/09/20 09:47 114 95 0.00 92 03/09/20 09:34 Room Air 03/09/20 08:35 36.0 20 138/74 (95) 03/04/20 16:15 28 General Appearance: No Apparent Distress, WD/WN Cardiovascular: Regular Rate, Rhythm, No Murmur Gastrointestinal: Normal Bowel Sounds, Soft Neurologic/Psychiatric: Alert, Oriented x3 Hospital Course Pt is a 74yoCF who was admitted due to hypoxic respiratory failure due to COVID19. She was treated with decadron and remdesivir. She did well and was ti trated off oxygen. She was able to discharge home in improved condition to follow up with her primary care doctor. Labs (last 24 hrs) Laboratory Tests 03/08/20 16:23: Glucometer 155H 03/08/20 20:55: Glucometer 112H 03/09/20 05:14: Glucometer 92 03/09/20 05:35: Sodium Level 138, Potassium Level 4.9, Chloride Level 106, Carbon Dioxide Level 23, Anion Gap 9, Blood Urea Nitrogen 18, Creatinine 0.57L, Estimat Glomerular Filtration Rate > 60, BUN/Creatinine Ratio 32, Glucose Level 85, Calcium Level 7.6L, Corrected Calcium 8.8, Total Bilirubin 0.3, Aspartate Amino Transf (AST/SGOT) 37H, Alanine Aminotransferase (ALT/SGPT) 56H, Alkaline Phosphatase 69, Total Protein 5.7L, Albumin 2.5L 03/09/20 10:23: Glucometer 150H Microbiology 03/04/20 Blood Culture - Preliminary, Resulted No growth Patient resulted labs reviewed. Pending Labs Laboratory Tests 03/09/20 05:14: Glucometer 92 03/09/20 05:35: Sodium Level 138, Potassium Level 4.9, Chloride Level 106, Carbon Dioxide Level 23, Anion Gap 9, Blood Urea Nitrogen 18, Creatinine 0.57, Estimat Glomerular Filtration Rate > 60, BUN/Creatinine Ratio 32, Glucose Level 85, Calcium Level 7.6, Corrected Calcium 8.8, Total Bilirubin 0.3, Aspartate Amino Transf (AST/SGOT) 37, Alanine Aminotransferase (ALT/SGPT) 56, Alkaline Phosphatase 69, Total Protein 5.7, Albumin 2.5 03/09/20 10:23: Glucometer 150 Imaging: Reviewed Imaging Report Discussion & Recommendations Discharge Planning: >30 minutes discharge planning Discharge Home Medications: Active Scripts Active Losartan-Hctz 50-12.5 mg Tab (Losartan/Hydrochlorothiazide) 1 Each Tablet 1 Each PO DAILY 30 Days Reported Amlodipine Besylate 5 Mg Tablet 5 Mg PO DAILY Instructions to patient/family Please see electronic discharge instructions given to patient. Clinical Quality Measures DVT/VTE Risk/Contraindication: Risk Factor Score Per Nursin RFS Level Per Nursing on Admit: 4+=Very High Problem Qualifiers (1) HTN (hypertension): Hypertension type: essential hypertension Qualified Codes: I10 - Essential (primary) hypertension (2) Obesity: Obesity type: due to excess calories Obesity classification: adult class 1 (BMI 30 - 34.9) Serious obesity comorbidity presence: with serious comorbidity Body mass index: BMI 30.0-30.9 Qualified Codes: E66.09 - Other obesity due to excess calories; Z68.30 - Body mass index (bmi) 30.0-30.9, adult ESA TORRES MD Mar 09, 2020 12:36
--- NOTE | 2020-03-09 13:23 | NUR ---
CM/SS visited with the patient nurse for discharge planning. The patient did not qualify for home oxygen at this time. CM/SS visited with the patient primary care nurse to assess if patient had any needs this sw could assist with. Elisabeth reported that the patient has transportation to get home and no other needs were noted at this time.
[2020-03-09 15:30] VITALS: BP 138/74
--- NOTE | 2020-03-10 10:39 | Physician Query Clarification ---
PQ-Intro New Diagnosis Admission/Discharge Admission Date: Mar 04, 2020 at 13:16 Discharge Date: Mar 09, 2020 at 15:30 Dr. Olivas, The medical record reflects the following clinical scenario: History/Risk Factors: Covid-19, acute respiratory failure w/hypoxia Clinical Findings: 1. Multifocal patchy alveolar consolidation in the lungs which may relate to multifocal pneumonia and atypical infectious etiologies. Covid 19 is in the differential diagnosis. Primary differential diagnostic consideration would be a pneumonitis. WBC - 13.7 > 16.3 Procalcitonin 0.11 T 35.7 on 03/06 Treatment: decadron and remdesivir Question: What condition best reflects the above clinical scenario? Please document a response in the Progress Noter or Discharge Summary. 1. Viral pneumonia 2. Pneumonia ruled out. Bilateral infiltrates only. 3. Other, with explanation of the clinical findings. 4. Clinically undetermined, no explanation for the clinical findings. PHYSICIAN RESPONSE What condition reflects above: 1 Please remember a lack of response to the above will prompt a phone page by [facility]oding staff. In responding to this query, please exercise your independent professional judgment. The purpose of this communication is to more accurately reflect the complexity of your patients condition. The fact that a question is asked does not imply that any particular answer is desired or expected. Thank you for your timely response to this clarification. Requestors name: [email or web address] THIS PHYSICIAN QUERY FORM IS A PERMANENT PART OF THE MEDICAL RECORD SHERIF GARCIA Mar 10, 2020 10:39 ESA OLIVAS MD Mar 11, 2020 11:29
== END 2020-03-09 15:30 | disposition home or self-care (01) | DRG 177 ==
LOC: ER 12:19 → 4TH 13:16
PROVIDERS: ADMIT Internal Medicine; ATTEND Internal Medicine
DX: U07.1 COVID-19 (principal); J96.01 Acute respiratory failure with hypoxia; J12.89 Other viral pneumonia; E87.2 Acidosis; D47.3 Essential (hemorrhagic) thrombocythemia; I10 Essential (primary) hypertension; E27.8 Other specified disorders of adrenal gland; D72.810 Lymphocytopenia; E66.9 Obesity, unspecified; R74.8 Abnormal levels of other serum enzymes; R79.1 Abnormal coagulation profile; Z68.32 Body mass index [BMI] 32.0-32.9, adult
CPT/HCPCS: 36415; 71045; 71275; 80053; 82728; 82962; 83605; 83615; 84145; 84484; 85007; 85025; 85027; 85379; 85610; 85730; 86141; 87040; 87635; 93005; 93041; 94640; 94664; 94760; 94761